=== PATIENT | male | born 1980 | race Caucasian/White ===

== ENCOUNTER 2017-12-01 09:06 | Emergency (ER) | payer MEDICAID ==
[2017-12-01] MEDS ORDERED: Ketorolac 60 MG/2 ML SDV IM ONE (09:20)
--- NOTE | 2017-12-01 10:18 | EDM.PDOC ---
ED HPI GENERAL MEDICAL PROBLEM - General Chief Complaint: Back Pain or Injury Stated Complaint: BACK PAIN Time Seen by Provider: 12/01/17 09:06 Source of Information: Reports: Patient History Limitations: Reports: No Limitations - History of Present Illness INITIAL COMMENTS - FREE TEXT/NARRATIVE: 37 y.o.w.m with a h/o low back pain, 4 days after was lifting weights at home when he suddenly felt a pain at his lower back, radiating down his left heal. There was no direct trauma. pt took 800mg of Motrin yesterday. No stool or urine incontinence. No other acute medical issues. BP 145/99 RR 18 Pulse ox 98% on RA pulse 87. Onset Date: 11/26/17 Onset Time: 07:00 Duration: Day(s):, Intermittent Location: Reports: Back Quality: Reports: Ache, Burning, Dull Severity: Moderate Improves with: Reports: Rest Worsens with: Reports: Movement Context: Reports: Lifting Associated Symptoms: Reports: No Other Symptoms Back Pain Score (Numeric/FACES): 5 - Related Data Allergies Allergy/AdvReac Type Severity Reaction Status Date / Time No Known Allergies Allergy Verified 12/01/17 09:16 Home Meds: Home Meds Cyclobenzaprine [Flexeril] 10 mg PO TID PRN 12/01/17 [History] Hydrocodone/Acetaminophen [Vicodin 5-300 mg Tablet] 1 each PO Q6HR PRN #12 tablet 12/01/17 [Rx] Ibuprofen [Motrin Bulk Bottle] 600 mg PO Q4H PRN 12/01/17 [History] Lisinopril 40 mg PO DAILY 12/01/17 [History] Metoprolol Tartrate 25 mg PO DAILY 12/01/17 [History] ED ROS GENERAL - Review of Systems Review Of Systems: See Below Constitutional: Reports: No Symptoms HEENT: Reports: No Symptoms Respiratory: Reports: No Symptoms Cardiovascular: Reports: No Symptoms Endocrine: Reports: No Symptoms GI/Abdominal: Reports: No Symptoms : Reports: No Symptoms Musculoskeletal: Reports: Back Pain, Muscle Pain Skin: Reports: No Symptoms Neurological: Reports: No Symptoms Psychiatric: Reports: No Symptoms Hematologic/Lymphatic: Reports: No Symptoms Immunologic: Reports: No Symptoms ED EXAM,LOWER BACK PAIN/INJURY - Physical Exam Exam: See Below Exam Limited By: No Limitations General Appearance: Alert, WD/WN, Mild Distress Eye Exam: Bilateral Eye: Normal Inspection Ears: Normal External Exam, Normal Canal, Hearing Grossly Normal Nose: Normal Inspection, Normal Mucosa, No Blood Throat/Mouth: Normal Inspection, Normal Lips, Normal Voice, No Airway Compromise Head: Atraumatic, Normocephalic Neck: Normal Inspection, Supple, Non-Tender, Full Range of Motion Respiratory/Chest: No Respiratory Distress, Lungs Clear, Normal Breath Sounds, No Accessory Muscle Use, Chest Non-Tender Cardiovascular: Normal Peripheral Pulses, Regular Rate, Rhythm, No Edema, No Gallop, No Murmur, No Rub, Irregularly Irregular GI/Abdominal: Normal Bowel Sounds, Soft, Non-Tender, No Organomegaly, No Abnormal Bruit, No Mass, Pelvis Stable (Male) Exam: Deferred Rectal (Males) Exam: Deferred Back Exam: Normal Inspection, Decreased Range of Motion, Paraspinal Tenderness, Vertebral Tenderness Extremities: Normal Inspection, Non-Tender, No Pedal Edema, Normal Capillary Refill Neurological: Alert, Normal Mood/Affect, Normal Dorsiflexion, CN II-XII Intact, Normal Plantar Flexion, Oriented x 3, Abnormal Gait, Straight Leg Raise (L) (20 degree), Straight Leg Raise (R) (20 degree) Psychiatric: Normal Affect, Normal Mood Skin Exam: Warm, Dry, Intact, Normal Color, No Rash Lymphatic: No Adenopathy Course - Vital Signs Text/Narrative:: 37 y.o.w.m with a h/o low back pain, 4 days after was lifting weights at home when he suddenly felt a pain at his lower back, radiating down his left heal. There was no direct trauma. pt took 800mg of Motrin yesterday. No stool or urine incontinence. No other acute medical issues. BP 145/99 RR 18 Pulse ox 98% on RA pulse 87. Imaging: CT of Lumbar spine: Disk disease, no prolapse, no protrusion as per RAD Impression: Chronic low back pain with acute exacerbation, sciatica to left leg Tx: Toradol, Ice Reexam: Improved Plan: D/C with instructions Last Recorded V/S: Last Vital Signs Temp 36.7 C 12/01/17 09:21 Pulse Resp 17 12/01/17 09:21 BP 155/95 H 12/01/17 10:45 Pulse Ox 100 12/01/17 09:21 - Orders/Labs/Meds Orders: Active Orders 24 hr Category Date Time Status Cooling Warming Measures [RC] ASDIRECTED Care 12/01/17 09:21 Active Ice Bag [Ice Therapy] [OM.PC] Routine Oth 12/01/17 09:21 Ordered Meds: Medications Discontinued Medications Generic Name Dose Route Start Last Admin Trade Name Freq PRN Reason Stop Dose Admin Ketorolac Tromethamine 60 mg 12/01/17 09:20 12/01/17 09:28 Toradol IM 12/01/17 09:21 60 mg ONETIME ONE Administration Departure - Departure Time of Disposition: 10:19 Disposition: Home, Self-Care 01 Condition: Good Clinical Impression: Chronic low back pain Qualifiers: Back pain laterality: left Sciatica presence: with sciatica Sciatica laterality : sciatica of left side Qualified Code(s): M54.42 - Lumbago with sciatica, left side Acute back pain with sciatica Qualifiers: Laterality: left Qualified Code(s): M54.42 - Lumbago with sciatica, left side - Discharge Information Prescriptions: Hydrocodone/Acetaminophen [Vicodin 5-300 mg Tablet] 1 each PO Q6HR PRN #12 tablet PRN Reason: for severe pain only Referrals: PCP,None [Primary Care Provider] - Forms: ED Department Discharge, ED Return to Work/School Form Additional Instructions: Please apply ICE to lower back, please take motrin for mod pain, Vicodin for excruciating pain only. Please F/U with your PMD/Orthopedic surgeon, please come back to the ed if your symptoms get worse acutely - My Orders Last 24 Hours: My Active Orders 12/01/17 09:21 Cooling Warming Measures [RC] ASDIRECTED Ice Bag [Ice Therapy] [OM.PC] Routine - Assessment/Plan Last 24 Hours: My Active Orders 12/01/17 09:21 Cooling Warming Measures [RC] ASDIRECTED Ice Bag [Ice Therapy] [OM.PC] Routine
--- NOTE | 2017-12-01 10:42 | CT ---
INDICATION: Lifting two days ago, pain shooting down left leg to back of calf. CT LUMBOSACRAL SPINE WITHOUT CONTRAST: Spiral 2.5 mm axial sections were obtained through the lumbosacral spine with sagittal and coronal reconstructions , as well as reconstructions with angling through the L3-4, L4-5, and L5-S1 disk spaces. Examination was obtained 12/01/2017 - no comparisons were available. Total exam DLP = 1,199.74 mGy-cm. Very slightly decreased disk space is seen at L4-5 with bulging disk centrally and no definite impingement on exiting nerve roots. Very minimal impingement is difficult to exclude, however, at the L4-5 level on the left. This is not compatible with the patients symptoms. Minimal bulging is also noted at the L3-4 disk. Vertebral body and disk heights were otherwise maintained. Mild hypertrophic changes are noted anterolaterally off the L5 vertebral body, cranial aspect, and to a moderate degree at the anterolateral aspect on the right of the L4 vertebral body. Only minimal hypertrophic changes seen at L3 off the cranial anterior aspect. IMPRESSION: Bulging disk centrally at L4-5 and to a lesser extent L3-4. There is slight decrease in disk space at L4-5. No evidence for an acute herniated nucleus pulposus is identified. For the most part, mild hypertrophic degenerative changes are noted off vertebral bodies L3 through L5. Report was called to Dr. Anderson this morning, 12/01/2017. ADRIANO
== END 2017-12-01 10:50 | disposition home or self-care (01) ==
LOC: FB.ED 09:06
DX: M54.42 Lumbago with sciatica, left side (principal); Z79.899 Other long term (current) drug therapy
CPT/HCPCS: 72131; 96372; 99283; J1885

== ENCOUNTER 2017-12-21 10:32 | Emergency (ER) | payer MEDICAID ==
--- NOTE | 2017-12-21 11:47 | EDM.PDOC ---
ED HPI GENERAL MEDICAL PROBLEM - General Chief Complaint: Lower Extremity Injury/Pain Stated Complaint: LEFT LEG Time Seen by Provider: 12/21/17 11:42 Source of Information: Reports: Patient History Limitations: Reports: No Limitations - History of Present Illness INITIAL COMMENTS - FREE TEXT/NARRATIVE: Injured back 3 weeks ago lifting furniture. Complains of left lower back pain radiating LLE associated with LLE tingling. Denies loss of bowel or bladder control. Was treated @ [facility] ED 12/01/17, prescribed [place]. CT L-spine showed bulging disc @ L4-5 and to lesser extent L3-4. Symptoms have not improved. Has a follow up appointment in 3 days with his PMD. Duration: Week(s): (3) Location: Reports: Back Quality: Reports: Dull Severity: Moderate Improves with: Reports: None Worsens with: Reports: None Associated Symptoms: Reports: No Other Symptoms Treatments [employer]: Reports: Acetaminophen, NSAIDS - Related Data Allergies Allergy/AdvReac Type Severity Reaction Status Date / Time No Known Allergies Allergy Verified 12/01/17 09:16 Home Meds: Home Meds Ibuprofen [Motrin Bulk Bottle] 600 mg PO Q4H PRN 12/01/17 [History] Lisinopril 40 mg PO DAILY 12/01/17 [History] Metoprolol Tartrate 25 mg PO DAILY 12/01/17 [History] Cyclobenzaprine [Flexeril] 10 mg PO TID PRN #30 tablet 12/21/17 [Rx] Hydrocodone/Acetaminophen [Vicodin 5-300 mg Tablet] 1 - 2 each PO Q6HR PRN #15 tablet 12/21/17 [Rx] predniSONE [Prednisone] 60 mg PO DAILY 5 Days #15 tablet 12/21/17 [Rx] Past Medical History Cardiovascular History: Reports: Hypertension Musculoskeletal History: Reports: Other (See Below) Other Musculoskeletal History: pinched nerve in neck - Past Surgical History Musculoskeletal Surgical History: Reports: Other (See Below) Other Musculoskeletal Surgeries/Procedures:: decompression of pinched nerve in neck Social & Family History - Caffeine Use Caffeine Use: Reports: Tea Review of Systems - Review of Systems Review Of Systems: ROS reveals no pertinent complaints other than HPI. Mouth/Throat: Reports: No Symptoms ED EXAM, GENERAL - Physical Exam Exam: See Below Exam Limited By: No Limitations General Appearance: Alert, WD/WN, No Apparent Distress Nose: Normal Inspection Throat/Mouth: No Airway Compromise Head: Atraumatic Neck: Full Range of Motion Respiratory/Chest: No Respiratory Distress Back Exam: Other (moderate tenderness left lower back) Extremities: Normal Inspection, Normal Range of Motion, Non-Tender, No Pedal Edema Neurological: Alert, Oriented, Normal Reflexes, No Motor/Sensory Deficits Psychiatric: Normal Affect, Normal Mood Skin Exam: Warm, Dry, Intact, Normal Color, No Rash Departure - Departure Time of Disposition: 11:47 Disposition: Home, Self-Care 01 Condition: Good Clinical Impression: Sciatica of left side - Discharge Information *PRESCRIPTION DRUG MONITORING PROGRAM REVIEWED*: Yes *COPY OF PRESCRIPTION DRUG MONITORING REPORT IN PATIENT MARLENI: No Prescriptions: Hydrocodone/Acetaminophen [Vicodin 5-300 mg Tablet] 1 - 2 each PO Q6HR PRN #15 tablet PRN Reason: for severe pain only Cyclobenzaprine [Flexeril] 10 mg PO TID PRN #30 tablet PRN Reason: Muscle Spasm predniSONE [Prednisone] 60 mg PO DAILY 5 Days #15 tablet Instructions: Sciatica Referrals: PCP,None [Primary Care Provider] - Additional Instructions: Keep appointment with your doctor on 12/24/17. Return to the ER if symptoms worsen.
== END 2017-12-21 12:05 | disposition home or self-care (01) ==
LOC: FB.ED 10:32
DX: M54.42 Lumbago with sciatica, left side (principal); I10 Essential (primary) hypertension; Z79.899 Other long term (current) drug therapy
CPT/HCPCS: 99283